=== PATIENT | female | born 1990 | race Caucasian/White ===

== ENCOUNTER 2017-09-19 11:08 | Emergency (ER) | payer BC ==
[2017-09-19 11:16] VITALS: BP 115/77
--- NOTE | 2017-09-19 12:03 | UC ---
Epi Chavira Elizabeth, scribed for Jael Delatorre DO on 09/19/17 at 1137 . Respiratory Complaint HPI - HPI Summary HPI Summary: This patient is a 27 year old F presenting to [facility] with a chief complaint of nonproductive cough since 3 days ago. The patient reports that her cough worsens at night when she lies down and makes it hard for her to sleep. The patient rates the pain 4/10 in severity. Symptoms aggravated by recumbent position. Symptoms alleviated by nothing. Patient reports sinus pressure, rhinorrhea, ear pressure, headache, and vomiting from coughing so hard. Patient denies chills. The patient also notes that she has been taking cough medicine with a fever equine pharmacology technician in it and is unsure if she has had a fever. - History of Current Complaint Chief Complaint: UCRespiratory Stated Complaint: SINUS COMPLAINT Time Seen by Provider: 09/19/17 11:22 Hx Obtained From: Patient Hx Last Menstrual Period: 08/02/13 Onset/Duration: Gradual Onset, Lasting Days - 3 days, Still Present Timing: Constant Severity Initially: Mild Severity Currently: Mild Pain Intensity: 4 Pain Scale Used: 0-10 Numeric Character: Cough: Nonproductive Aggravating Factors: Recumbent Position Alleviating Factors: Nothing Associated Signs And Symptoms: Positive: Sinus Discomfort. Negative: Chills - Allergies/Home Medications Allergies/Adverse Reactions: Allergies Allergy/AdvReac Type Severity Reaction Status Date / Time lactose Allergy GI Upset Verified 09/19/17 11:16 Penicillins Allergy Rash Verified 09/19/17 11:16 PMH/Surg Hx/FS Hx/Imm Hx Previously Healthy: Yes - Surgical History Surgical History: None - Family History Known Family History: Positive: None - patient denies relevant FHx - Social History Alcohol Use: Daily Substance Use Type: None Smoking Status (MU): Former Smoker Type: Cigarettes Amount Used/How Often: 1/4 PPD Have You Smoked in the Last Year: Yes - Immunization History Most Recent Influenza Vaccination: 12/30/15 Most Recent Tetanus Shot: 11/04/15 Most Recent Pneumonia Vaccination: not indicated Review of Systems Constitutional: Negative - NEGATIVE CHILLS ENT: Ear Ache, Sinus Pain/Tenderness - sinus pressure Respiratory: Cough Gastrointestinal: Vomiting Neurological: Headache All Other Systems Reviewed And Are Negative: Yes Physical Exam - Summary Physical Exam Summary: Appearance: Well-Appearing, No Pain Distress, Well-Nourished Eyes: conjunctiva clear, no discharge ENT: Hearing grossly normal, no muffled/hoarse voice. TMs normal, negative tonsillar swelling, negative tonsillar exudate, negative trismus. Nasal mucosa is pale and boggy, suborbital congestion, sinus tenderness over right maxillary sinus, normal oropharynx Neck: Normal, Supple Respiratory/Lung Sounds: Lungs clear, Normal breath sounds, No respiratory distress, No accessory muscle use. Prolonged expiration in bilateral bases Cardiovascular: RRR, No murmur Musculoskeletal: Normal Neurological: Alert, muscle tone normal Psychiatric: Normal, age appropriate behavior Skin: Normal, Warm, Dry, Normal color Triage Information Reviewed: Yes Vital Signs: Initial Vital Signs Temp 98.7 F 09/19/17 11:13 Pulse 72 09/19/17 11:13 Resp 18 09/19/17 11:13 BP 115/77 09/19/17 11:13 Pulse Ox 99 09/19/17 11:13 Vital Signs Reviewed: Yes Diagnostic Evaluation - Laboratory O2 Sat by Pulse Oximetry: 99 Respiratory Course/Dx - Course Course Of Treatment: This patient is a 27 year old F reporting nonproductive cough, rhinorrhea, and sinus pressure since 3 days ago. Patient will be discharged with prescription for albuterol, Zithromax, Tessalon, Mucinex, and Robitussin. The patient is agreeable with this plan. Medications reviewed. Allergies reviewed. - Differential Dx/Diagnosis Provider Diagnoses: allergies, sinusitis, bronchospasm Discharge - Sign-Out/Discharge Documenting (check all that apply): Discharge/Admit/Transfer - Discharge Plan Condition: Stable Disposition: HOME Discharge Disposition Comment: discharge home Prescriptions: Albuterol HFA INHALER* [Ventolin HFA Inhaler*] 2 puff INH Q4H PRN #1 mdi PRN Reason: Sob/Wheezing Azithromycin TAB* [Zithromax TAB (Z-EMMA) 250 mg #6 tabs] 0 mg PO .SEE INSTRUCTIONS #6 tab Benzonatate CAP* [Tessalon 100 MG CAP*] 100 mg PO TID #30 cap guaiFENesin ER TAB [Mucinex*] 600 mg PO BID PRN #1 box PRN Reason: Cough guaiFENesin/CODIEN 100MG-10MG* [Robitussin AC 100Mg-10Mg*] 5 - 10 ml PO Q4H PRN #100 udc MDD 10ml PRN Reason: Cough Patient Education Materials: Sinusitis (ED), Allergies (ED), Bronchospasm (ED) Referrals: No Primary Care Phys,NOPCP [Primary Care Provider] - If Needed Additional Instructions: TRY USING THE NETTI POT IN THE MORNINGS DISCUSSED. YOU MUST ALWAYS USE CLEAN WATER. REMEMBER, POSTURE IS AN IMPORTANT FACTOR IN SINUS DRAINAGE. MOVE YOUR NECK, BREATHE. INHALED BRONCHODILATORS: You have received a prescription for an inhaled bronchodilator -- a medication which stimulates the airways in the lung to dilate. This improves the flow of air in asthma, bronchitis, and emphysema. These medicines have some similarity to adrenaline, and can cause similar side effects: shakiness, racing heart, and a sense of nervousness. These side effects decrease with time. Contact your doctor if these side effects are severe. Do not over-use the medicine. Too-frequent use of the inhaler may make it ineffective. Call your doctor if the inhaler is not controlling your symptoms at the prescribed doses. COUGH-SUPPRESSANT & EXPECTORANT MEDICATION: You are to use a cough medication as needed for relief of symptoms. This medicine is a combination of an expectorant (to make the mucous thinner and more easily "coughed up") and a cough suppressant (to reduce the frequency of coughing). The cough-suppressant medicine is related to narcotics. You may experience mild nausea and sleepiness. Some patients who are very sensitive to narcotics may have stomach pain from this medicine. Taking the medicine with food reduces these side effects. Do not drive or work with machinery until you know how this medicine affects you. The expectorant should have no side effects. Iodine-containing expectorants (such as organidin) should not be taken by persons with active thyroid disease unless approved by your doctor. Call the doctor if you develop shortness of breath, hives, rash, itching, lightheadedness, or severe nausea and vomiting. EXPECTORANT MEDICATION: WE SENT IN A SCRIPT FOR MUCINEX SO THAT IT IS EASIER FOR YOU TO PICK THE RIGHT MED AT THE PHARMACY. HOWEVER, YOU CAN ALSO GO TO THE [employer] [facility] AND BUY PLAIN GUAIFENESIN WITHOU BINDERS OR FILLERS. An expectorant medicine has been prescribed. This type of drug makes mucous thinner, helping the sinuses, nose, and bronchial tubes to remain free of pus and mucous. Expectorants make a cough less severe and more comfortable, and help infected sinuses drain. In general, antihistamines defeat the purpose of the expectorant by making mucous thicker. They should be avoided unless specifically recommended by your physician. TESSALON PERLES: You have received a prescription for Tessalon Perles (benzonatate). This is a non-narcotic medicine for relief of cough. It usually works in about 15- 20 minutes and lasts around four hours. Tessalon Perles should be swallowed. They should not be chewed or dissolved in the mouth (this can produce temporary numbing of the mouth and choking can occur). If you develop any adverse effects such as wheezing, shortness of breath, hives, rash, itching, or lightheadedness, please return at once. ANTIBIOTICS ARE NOT CURRENTLY INDICATED FOR YOUR CONDITION. HOWEVER, IF YOUR SYMPTOMS WORSEN OR PERSIST FOR OVER THE NEXT 4-6 DAYS, YOU CAN TAKE THE FOLLOWING MEDICATION: AZITHROMYCIN: Azithromycin (Zithromax) is a broad spectrum antibiotic in the same class as erythromycin. It can treat a variety of bacterial infections, but is most frequently used for respiratory infections. Azithromycin is extremely long-lasting. It accumulates in body tissues and continues to kill bacteria for many days. In order to improve absorption, Azithromycin should be taken at least one hour before or two hours after a meal. It does not have the same strong tendency to upset the stomach as erythromycin and is usually very well tolerated. Patients who have had a rash or other true allergic reactions to erythromycin should not take this medication. Call if you develop gastrointestinal distress, severe diarrhea, rash, hives, itching, or shortness of breath. ANYTIME YOU TAKE AN ANTIBIOTIC, IT IS IMPORTANT TO REPLENISH THE BODY'S SUPPLY OF "GOOD BACTERIA." YOU CAN GET GOOD BACTERIA FROM HIGH QUALITY CULTURED FOODS SUCH LOCAL YOGURT, SOUR KRAUT, [employer], NATURALLY FERMENTED PICKLES AND PROBIOTIC DRINKS. YOU CAN ALSO GET GOOD BACTERIA FROM A PROBIOTIC SUPPLEMENT. FOLLOW-UP CARE: You should establish with a private physician for follow-up care. If you are unable to get a timely appointment, or if you are worsening, call us or return for re-evaluation. An additional resource available to assist in finding the appropriate physician for your health care needs is the [facility] Referral Center. You may contact them by calling [phone]. The documentation as recorded by the Epi payne Elizabeth accurately reflects the service I personally performed and the decisions made by me, Jael Delatorre DO.
== END 2017-09-19 13:13 | disposition home or self-care (01) ==
LOC: UCEAST 11:08
DX: J31.0 Chronic rhinitis (principal); J32.9 Chronic sinusitis, unspecified; J98.01 Acute bronchospasm; Z88.0 Allergy status to penicillin; Z87.891 Personal history of nicotine dependence
CPT/HCPCS: 99212; G0463

== ENCOUNTER 2023-05-24 05:53 | Inpatient (IN) ==
[2023-05-24] MEDS: Lactated Ringers 1000 ml BAG 1,000 ML IV ONE (06:00)
[2023-05-24] MEDS ORDERED: Lidocaine 1% VIAL 10 MG/ML 30 ML VIAL INJ PRN (06:26)
[2023-05-24] MEDS ORDERED: Buffered Lidocaine 1% SYRIN 1 ml INTRADERM ONE (06:26)
[2023-05-24 07:00] LABS: ABS Basophils 0.1 10^3/uL (0.0-0.1); ABS Lymphocytes 2.4 10^3/uL (1.0-4.8); ABS Monocytes 1.2 10^3/uL (0.0-0.9); ABS Neutrophils 12.8 10^3/uL (1.5-7.6); ABS Nucleated RBC 0.01 10^3/ul; Eosinophil % 0.1 %; Hematocrit 38.1 % (35-45); Lymphocyte % 14.4 %; Mean Corpuscular Volume 91.1 fL (80-97); Nucleated Red Blood Cells % 0.1 %/100WBC (0.0-0.8); Platelet Count 185 10^3/uL (150-450); Red Blood Count 4.18 10^6/uL (3.63-4.92); Red Cell Distribution Width 14.5 % (12-17); White Blood Count 16.5 10^3/uL (3.8-11.8)
[2023-05-24] MEDS: Lactated Ringers 1000 ml BAG 1,000 ML IV SCH (07:00)
[2023-05-24 07:20] LABS: ALT 11 U/L (7-52); Blood Urea Nitrogen 8 mg/dL (6-24); CO2 Carbon Dioxide 18 mmol/L (22-32); Calcium 9.1 mg/dL (8.6-10.3); Chloride 103 mmol/L (101-111); Creatinine, Serum 0.51 mg/dL (0.51-0.95); Glucose 116 mg/dL (70-100); eGFR CKD-EPI 124.8 (>60)
[2023-05-24 07:21] LABS: Albumin 3.5 g/dL (3.2-5.2); Albumin/Globulin Ratio 1.2 (1-3); Alkaline Phosphatase 125 U/L (35-149); Globulin 2.9 g/dL (2-4); Total Bilirubin 0.4 mg/dL (0.2-1.0); Total Protein 6.4 g/dL (6.4-8.9)
[2023-05-24] MEDS ORDERED: Lidocaine 1.5% EPI 1:200,000 30 ML SDV ONE (07:21)
[2023-05-24 07:35] LABS: Anion Gap 4 mmol/L (2-16); Sodium 125 mmol/L (135-145)
[2023-05-24] MEDS: OBEPIDURAL (200 ML) 200 ML EPIDURAL ONE (07:38)
[2023-05-24] MEDS: Oxytocin in LR 20,000 MILLI.UNIT/1,000 ML BAG IV SCH (08:00)
[2023-05-24] MEDS ORDERED: Lactated Ringers 1000 ml BAG 1,000 ML IV SCH (09:00)
[2023-05-24 09:16] LABS: Potassium Redraw 4.4 mmol/L (3.5-5.0)
[2023-05-24] MEDS: Dibucaine 1% OINT 28.35 GM TUBE PR PRN (10:05)
[2023-05-24] MEDS: Witch Hazel PAD JAR TOPICAL PRN (10:06)
[2023-05-24] MEDS: Oxytocin in LR 20,000 MILLI.UNIT/1,000 ML BAG IV ONE (13:10)
[2023-05-24] MEDS ORDERED: Lidocaine 1% VIAL 10 MG/ML 30 ML VIAL ONE (19:06)
[2023-05-25 00:54] LABS: Urine Benzodiazepine Screen None Detected (None Detect); Urine Cannabinoids Screen None Detected (None Detect); Urine Opiates Screen None Detected (None Detect)
[2023-05-25 07:54] LABS: ABS Lymphocytes 2.8 10^3/uL (1.0-4.8); ABS Monocytes 0.9 10^3/uL (0.0-0.9); ABS Neutrophils 9.9 10^3/uL (1.5-7.6); ABS Nucleated RBC 0.01 10^3/ul; Eosinophil % 0.3 %; Hematocrit 31.3 % (35-45); Hemoglobin 10.8 g/dL (11.5-14.3); Lymphocyte % 20.4 %; Mean Corpuscular Hemoglobin 31.3 pg (27-33); Mean Corpuscular Hgb Conc 34.5 g/dL (31-36); Mean Corpuscular Volume 90.7 fL (80-97); Mean Platelet Volume 10.7 fL (7.5-11.2); Platelet Count 118 10^3/uL (150-450); Red Blood Count 3.45 10^6/uL (3.63-4.92); Red Cell Distribution Width 14.2 % (12-17); White Blood Count 13.7 10^3/uL (3.8-11.8)
[2023-05-25 10:52] VITALS: BP 113/64
== END 2023-05-25 13:36 | disposition home or self-care (01) | DRG 560 ==
LOC: MCHOBOUT 05:53 → MCHOB 06:16
PROVIDERS: ADMIT Advanced Practice Midwife; ATTEND Advanced Practice Midwife